=== PATIENT | male | born 1995 | race Two or more races ===

== ENCOUNTER 2018-09-17 00:53 | Emergency (ER) | payer SELFPAY ==
[~2018-09-17] VITALS: Ht 165.1 cm; Wt 72.6 kg
[~2018-09-17 00:53] MED LIST: BENTYL10 MG ORAL; DIPHENHYDRAMINE25 M1 ORAL; KEFLEX500 MG ORAL; NKM; OFLOXACIN10 ML RIGHT EAR; PREDNISONE20 MG ORAL; RANITIDINE HCL150 MG ORAL; TYLENOL EXTRA500 MG ORAL; ZOFRAN4 MG ORAL
[2018-09-17 01:19] VITALS: BP 125/80
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
[2018-09-17] MEDS ORDERED: IBUPROFEN600 MG ORAL (01:23)
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
--- NOTE | 2018-09-17 01:50 | NUR ---
ED Nurse Note: pt went to ct with tech
--- NOTE | 2018-09-17 02:10 | NUR ---
ED Nurse Note: pt went back from ct with tech
[2018-09-17 02:11] VITALS: BP 125/80
--- NOTE | 2018-09-17 02:11 | NUR ---
ER DISCHARGE NOTE: Patient is cleared to be discharged per ERMD, pt is aox4, on room air, with stable vital signs. pt was given dc and prescription instructions, pt was able to verbalize understanding, pt id band removed without complications. pt is able to ambulate with steady gait. pt took all belongings.
== END 2018-09-17 02:11 | disposition home or self-care (01) ==
LOC: EMR 01:29
DX: S09.90XA Unspecified injury of head, initial encounter (principal); F07.81 Postconcussional syndrome; Y04.2XXA Assault by strike against or bumped into by another person, initial encounter
CPT/HCPCS: 70450; 99284